=== PATIENT | male | born 1960 | race Caucasian/White ===

== ENCOUNTER 2016-06-19 08:25 | Day surgery (SDC) | payer BC, OTHER ==
[2016-06-13 17:05] VITALS: BMI 35.9
[2016-06-19] MEDS ORDERED: PROPOFOL 20 ML ONE ×2 (08:47)
[2016-06-19 10:45] VITALS: BP 116/74; PULSE 71; TEMP 97.9
== END 2016-06-19 10:47 | disposition home or self-care (01) ==
LOC: FASU-ENDO 08:25
PROVIDERS: ATTEND Internal Medicine Gastroenterology
PROC: 0DJD8ZZ Inspection of Lower Intestinal Tract, Via Natural or Artificial Opening Endoscopic (ICD-10-PCS; principal; 2016-06-19 09:41)
DX: Z83.71 Family history of colonic polyps (principal); K57.30 Diverticulosis of large intestine without perforation or abscess without bleeding

== ENCOUNTER 2016-07-19 08:31 | Emergency (ER) | payer BC, OTHER ==
[2016-07-19] MEDS ORDERED: CYCLOBENZAPRINE HCL 10 MG TABLET (FP) PO ONE (08:42)
[2016-07-19] MEDS ORDERED: KETOROLAC TROMETHAMINE 60 MG/2 ML VIAL IM ONE (08:42)
[2016-07-19 08:44] VITALS: BP 144/93; PULSE 90; TEMP 98.1; BMI 35.9
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
[2016-07-19] MEDS ORDERED: KETOROLAC TROMETHAMINE 60 MG/2 ML VIAL ONE (08:53)
[2016-07-19] MEDS ORDERED: CYCLOBENZAPRINE HCL 10 MG TABLET (FP) ONE (08:54)
== END 2016-07-19 09:14 | disposition home or self-care (01) ==
LOC: JER 08:31
PROC: 3E0233Z Introduction of Anti-inflammatory into Muscle, Percutaneous Approach (ICD-10-PCS; principal; 2016-07-19)
DX: S16.1XXA Strain of muscle, fascia and tendon at neck level, initial encounter (principal); X02 Exposure to controlled fire in building or structure; Y93.89 Activity, other specified; Y92.89 Other specified places as the place of occurrence of the external cause; Y99.0 Civilian activity done for income or pay
CPT/HCPCS: 99283-25

== ENCOUNTER 2019-11-09 04:01 | Emergency (ER) | payer OTHER ==
[2019-11-09] MEDS ORDERED: SODIUM CHLORIDE 1,000 ML IV STA (04:27)
[2019-11-09 04:33] VITALS: TEMP 99; BMI 38.0
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
[2019-11-09 05:36] VITALS: BP 134/92; PULSE 80
--- NOTE | 2019-11-09 14:02 | EKG ---
Test Reason : Blood Pressure : / mmHG Vent. Rate : 093 BPM Atrial Rate : 093 BPM P-R Int : 156 ms QRS Dur : 090 ms QT Int : 334 ms P-R-T Axes : 020 -28 001 degrees QTc Int : 415 ms NORMAL SINUS RHYTHM MINIMAL VOLTAGE CRITERIA FOR LVH, MAY BE NORMAL VARIANT BORDERLINE ECG WHEN COMPARED WITH ECG OF 17-APR-2019 14:25, NO SIGNIFICANT CHANGE WAS FOUND Confirmed by JERRY GUZMÁN MD ([id number]) on 11/09/2019 2:02:21 PM Referred By: Confirmed By:JERRY GUZMÁN MD
== END 2019-11-09 05:51 | disposition home or self-care (01) ==
LOC: JER 04:01
PROC: 3E0337Z Introduction of Electrolytic and Water Balance Substance into Peripheral Vein, Percutaneous Approach (ICD-10-PCS; principal; 2019-11-09)
DX: T67.3XXA Heat exhaustion, anhydrotic, initial encounter (principal)
CPT/HCPCS: 93005; 93010; 99285-25

== ENCOUNTER 2020-08-04 14:31 | Emergency (ER) | payer BC | END 2020-08-04 15:20 | disposition home or self-care (01) | LOC: JVIRT 14:31 | DX: U07.1 COVID-19 (principal) | CPT/HCPCS: C9803; G2251-GT; U0003 ==

== ENCOUNTER 2023-01-01 10:42 | Day surgery (SDC) | payer BC ==
[2022-12-27 14:54] VITALS: BMI 40.0
[2023-01-01 13:10] VITALS: TEMP 97
[2023-01-01 13:13] VITALS: BP 130/66; PULSE 71; RESP 19
== END 2023-01-01 12:55 | disposition home or self-care (01) ==
LOC: FASU-ENDO 10:42
PROVIDERS: ATTEND Internal Medicine Gastroenterology
PROC: 0DJD8ZZ Inspection of Lower Intestinal Tract, Via Natural or Artificial Opening Endoscopic (ICD-10-PCS; principal; 2023-01-01 12:17)
DX: Z12.11 Encounter for screening for malignant neoplasm of colon (principal); K57.30 Diverticulosis of large intestine without perforation or abscess without bleeding; Z83.71 Family history of colonic polyps